=== PATIENT | male | born 1995 | race Caucasian/White ===

== ENCOUNTER 2024-10-21 10:54 | Day surgery (SDC) | payer OTHER ==
[2024-10-21] VITALS (8 sets, daily range): BP systolic 109–135; BP diastolic 80–99
[~2024-10-21 10:54] MED LIST: CEPH500 PO; CODACE30 PO; Fluocinolone Ac15 G1 TP; RXCODACET PO; SILSUL1TC TOP
[2024-10-21] MEDS ORDERED: Lactated Ringer's 1,000 ML IV SCH (11:10)
[2024-10-21] MEDS ORDERED: CeFAZolin Sodium 3,000 MG in NS 100 ML IV SCH (11:10)
--- NOTE | 2024-10-21 13:27 | NUR ---
ASSUMED CARE OF PATIENT.
[2024-10-21] MEDS ORDERED: Lidocaine HCl 1% 5 ML SYR INJ ONE (13:30)
[2024-10-21] MEDS ORDERED: Acetaminophen 500 MG Tab PO ONE (13:30)
[2024-10-21] MEDS ORDERED: HYDROmorphone HCl/Pf 1MG SYR IV PRN ×2 (13:30)
[2024-10-21] MEDS ORDERED: Ondansetron HCl 2 MG / ML 2ML Vial IV PRN (13:30)
[2024-10-21] MEDS ORDERED: FentaNYL Citrate 50 MCG/ML 2 ML Injection IV PRN ×2 (13:30→13:35)
[2024-10-21] MEDS ORDERED: Albuterol 2.5 MG/3 ML VIAL INH PRN (13:35)
[2024-10-21] MEDS ORDERED: Scopolamine Hydrobromide Patch TOP SCH (13:35)
[2024-10-21] MEDS ORDERED: DiphenhydrAMINE HCl 50 MG/ML 1ML Vial IV PRN (13:35)
[2024-10-21] MEDS ORDERED: Droperidol 5 mg/2 ml Vial IV PRN (13:35)
[2024-10-21] MEDS ORDERED: propofoL 20 ML IV ONE (13:45)
[2024-10-21] MEDS ORDERED: HYDROmorphone HCl/Pf 1MG SYR ONE (13:51)
[2024-10-21] MEDS ORDERED: EpiNEPhrine 1 MG/1 ML 1ML Vial ONE (13:52)
[2024-10-21] MEDS ORDERED: Dexamethasone Sod Phos 10 MG/ML 1ML VIAL ONE (13:52)
[2024-10-21] MEDS ORDERED: Ondansetron HCl 2 MG / ML 2ML Vial ONE (13:53)
[2024-10-21] MEDS ORDERED: Ketorolac Tromethamine 30mg Vial ONE (13:53)
[2024-10-21] MEDS ORDERED: propofoL 150 ML IV ONE (14:21)
[2024-10-21] MEDS ORDERED: Dexmedetomidine HCL 200 MCG / 2 ML ONE (14:21)
[2024-10-21] MEDS ORDERED: Ropivacaine 0.5% HCL/PF 5 MG/ML 30ML Vial ONE (14:21)
--- NOTE | 2024-10-21 14:58 | NUR ---
1147 TIME OUT FERFORMED FOR PERIPHERIAL NERVE BLOCK BY DR. LOPEZ. O2 PLACED AT 1 LMP AND O2 SAT MONITORED. 1450 PROCEDURE STARTED 1457 PROCEDURE COMPLETE, PATIENT TOLERATED WELL
[2024-10-21] MEDS ORDERED: Ketamine HCl 100 MG / ML 5ML Vial ONE (15:03)
[2024-10-21] MEDS ORDERED: DiphenhydrAMINE HCl 50 MG/ML 1ML Vial ONE (15:13)
[2024-10-21] MEDS ORDERED: FentaNYL Citrate 50 MCG/ML 2 ML Injection ONE ×2 (15:37→16:51)
[2024-10-21] MEDS ORDERED: Metoclopramide HCl 5MG / ML 2ML Vial ONE (15:46)
[2024-10-21] MEDS ORDERED: OxyCODONE 5 mg/Acetamin 325 mg TABLET PO PRN (17:55)
--- NOTE | 2024-10-21 18:01 | NUR ---
INTO STEP, OFFERED PUDDING AND WATER, TOW. VSS. ON RA. HOB UP. NO PAIN OR NAUSEA STATED BY PATIENT.
--- NOTE | 2024-10-21 18:13 | NUR ---
PT DENIES NAUSEA. REFUSED SCOP PATCH.
== END 2024-10-21 23:00 | disposition home or self-care (01) ==
LOC: ORSCMMR 10:54 → ORD 11:00 → ORSCMMR 12:30 → ORD 12:30 → ORSCMMR 23:00
PROVIDERS: Orthopaedic Surgery
PROC: 0MRN0KZ Replacement of Right Knee Bursa and Ligament with Nonautologous Tissue Substitute, Open Approach (ICD-10-PCS; principal; 2024-10-21 14:00)
DX: M22.01 Recurrent dislocation of patella, right knee (principal); M22.11 Recurrent subluxation of patella, right knee; S83.014A Lateral dislocation of right patella, initial encounter; W18.30XA Fall on same level, unspecified, initial encounter; Y93.41 Activity, dancing; E66.01 Morbid (severe) obesity due to excess calories; Z68.42 Body mass index [BMI] 45.0-49.9, adult
CPT/HCPCS: A9270; C1713; C1762; C1889; J0171; J0690; J1100; J1171; J1200; J1885; J2405; J2704; J2765; J2795; J3010; J7120